=== PATIENT | male | born 1975 | race Caucasian/White ===

== ENCOUNTER 2022-03-03 16:10 | Emergency (ER) | payer BC, SELFPAY ==
--- NOTE | ~2022-03-03 | XR_ITS ---
EXAMINATION: XR foot LT min 3V DATE: 03/03/2022 16:33 INDICATION: Left foot pain. Injury. TECHNIQUE: 4 views of left foot were obtained. COMPARISON: None. FINDINGS: There is moderate hallux valgus. No fracture. There is mild osteoarthritis of first metatar sophalangeal joint and talonavicular joint. There are enthesophytes at the posterior and plantar aspe cts of calcaneal tuberosity. IMPRESSION: 1. Mild polyarticular osteoarthritis. 2. Moderate hallux valgus. Reviewed, dictated and finalized at location A.
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
[2022-03-03 16:18] VITALS: BP 155/89; PULSE 94; RESP 18; TEMP 36.4; O2SAT 100
== END 2022-03-03 16:48 | disposition home or self-care (01) ==
PROVIDERS: Emergency Provider Nurse Practitioner Family; PCP Internal Medicine
DX: M79.672 Pain in left foot (principal); S90.811A Abrasion, right foot, initial encounter; S91.102A Unspecified open wound of left great toe without damage to nail, initial encounter; V86.95XA Unspecified occupant of 3- or 4- wheeled all-terrain vehicle (ATV) injured in nontraffic accident, initial encounter
CPT/HCPCS: 73630; 99213; G0463